=== PATIENT | female | born 1945 | race Caucasian/White ===

== ENCOUNTER 2024-12-25 13:33 | Outpatient (AMB) | payer MEDICARE, SELFPAY ==
--- NOTE | 2024-12-25 14:27 | MHC.OFFWIV ---
Intake Vital Signs 12/25/24 14:33 Weight 137 lb BP 122/80 Blood Pressure Location Rt brachial Position Sitting Pulse 54 Pulse Source Pulse Oximeter Temp 97.6 F Temp Source Oral Pulse Oximetry (%) 99 Oxygen Delivery Method Room Air Intake Visit Reasons: EP cough, sneezing, throat Intake Note: Patient here for cough, humming sound in chest at night, sneezing that has been present for 3 weeks. Patient Tobacco Use Status: Never used Tobacco Allergies atorvastatin [From Lipitor] Adverse Reaction (Mild, Verified 12/25/24 14:34) Unknown citalopram [From Celexa] Adverse Reaction (Mild, Verified 12/25/24 14:34) Unknown ezetimibe [From Vytorin] Adverse Reaction (Mild, Verified 12/25/24 14:34) Unknown hydrochlorothiazide [From Zestoretic] Adverse Reaction (Mild, Verified 12/25/24 14:34) Unknown lisinopril [From Zestoretic] Adverse Reaction (Mild, Verified 12/25/24 14:34) Unknown losartan Adverse Reaction (Mild, Verified 12/25/24 14:34) Unknown nitrofurantoin [From Macrodantin] Adverse Reaction (Mild, Verified 12/25/24 14:34) Unknown simvastatin [From Vytorin] Adverse Reaction (Mild, Verified 12/25/24 14:34) Unknown Sulfa (Sulfonamide Antibiotics) Adverse Reaction (Mild, Verified 12/25/24 14:34) Unknown tegaserod [From Zelnorm] Adverse Reaction (Mild, Verified 12/25/24 14:34) Unknown HPI HPI Comments History of Present Illness Details History - The patient is a 79-year-old female presenting with a persistent cough. - The cough has persisted for three and a half weeks and is described as dry. - The patient experiences sneezing fits, particularly when lying down at night. - She denies fever, shortness of breath, wheezing, ear pain, sinus pain, and gastrointestinal symptoms. - A sensation of abnormal chest noise is also noted. - There is no prior medical history of similar episodes, and she has not sought medical advice before for this issue. Physical Exam General: Cooperative, healthy appearing, comfortable and no acute distress Orientation/consciousness: Patient oriented x3 Limitations: No limitations Head: Normal to inspection Ears: Hearing grossly normal bilaterally, external ears normal and TM's normal bilaterally Nose: Normal external nose present, Normal nares present and No nasal discharge present Face and sinus: Normal facial exam and Yes sinuses nontender Mouth: Normal oral and palatal mucosa present and moist mucous membranes Throat: Yes tonsils normal, Yes uvula midline. Posterior oropharynx erythema Eyes: Appearance normal, both eyes and all related structures Neck: Normal visual inspection Respiratory: Clear to auscultation bilaterally. Normal respiratory effort, able to speak in complete sentences, Actively coughing, no respiratory distress, not tachypneic, no tripod positioning and no use of accessory muscles Cardiovascular: Regular rate and rhythm. Normal S1 and S2 Skin: No rashes or lesions noted Neuro: Patient oriented x3 Extremities: Normal to inspection and Yes no clubbing, cyanosis or edema PFSH Social History Patient Tobacco Use Status: Never used Tobacco Review of Systems Const All systems reviewed & are unremarkable except as noted in HPI and below Physical Exam Vital Signs: Last Vital Signs Temp 97.6 F 12/25/24 14:33 Pulse 54 12/25/24 14:33 BP 122/80 12/25/24 14:33 Pulse Ox 99 12/25/24 14:33 Oxygen Delivery Method Room Air 12/25/24 14:33 Assessment & Plan Assessment & Plan (1) URI, acute: Code(s): J06.9 - Acute upper respiratory infection, unspecified Plan: VSS, pt well appearing, PE unremarkable. Cough for 3 1/2 weeks, possible atypical pneumonia. A Zithromax Z-Franklyn has been prescribed for the patient's persistent cough as a potential bacterial cause is suspected. Warm salt water gargles are recommended for symptom relief, and Tessalon Perles prescribed as a cough suppressant for nighttime use, with an option for daytime if necessary. Ibuprofen is suggested for reducing throat inflammation. The patient will collect prescriptions from the specified pharmacy. Additional supportive measures include hydration, hot tea with honey, and rest. Patient was informed and verbally consented to the use of an ambient scribe for clinic note documentation during this visit Medications: New azithromycin For 250 mg dose pack: take 500 mg today (day 1), then 250 mg for 4 days (days 2-5) PO 6 tabs 0RF benzonatate 200 mg PO TID PRN 14 caps 0RF cough Coding Level of Care Code New Pt Level 3 (69035) Diagnoses URI, acute J06.9
[2024-12-25 14:33] VITALS: BP 122/80; PULSE 54; TEMP 36.4; O2SAT 99
== END 2024-12-25 14:58 | disposition home or self-care (01) ==
PROVIDERS: PCP Internal Medicine; Visit Provider Physician Assistant
DX: J06.9 Acute upper respiratory infection, unspecified (principal)

== ENCOUNTER → 2024-12-25 13:33 | Outpatient (BNVA) | payer MEDICARE, SELFPAY | PROVIDERS: PCP Internal Medicine | DX: J06.9 Acute upper respiratory infection, unspecified (principal) | CPT/HCPCS: 99202 ==

== ENCOUNTER 2025-06-23 09:25 | Outpatient (REF) | payer MEDICARE, SELFPAY ==
--- NOTE | ~2025-06-23 | XR_ITS ---
CLINICAL HISTORY: M79.606 - Pain in leg, unspecified --- Additional Notes or Special Instructions: Right lateral thigh and hip pain Exam: AP, lateral, spot lateral, and bilateral oblique views of the lumbar spine. Comparison: None provided. Findings: Avmr-ay-mjhwfzdx convex right mid lumbar curvature with apex at L3-4. Lateral view demonstrates 9 mm of anterolisthesis of L5 on S1. This is likely related to severe degenerative change of the L5-S1 facet joints. Ugds-lk-xakobfcm multilevel degenerative disc disease and degenerative facet disease throughout the lumbar spine. Degenerative disc disease is most pronounced at L3-4. Moderate to severe facet joint degenerative changes identified throughout. Mild height loss along the superior and inferior endplates of L1, age-indeterminate. Impression: 1. Age-indeterminate L1 compression deformity. Correlation with point tenderness suggested. MRI could further assess the acuity if prior radiographs are not available to confirm stability. 2. Multilevel degenerative disc disease and degenerative facet disease as discussed above. This document has been electronically signed by: Spencer Hauser MD on 06/23/2025 12:29:01
--- NOTE | ~2025-06-23 | XR_ITS ---
CLINICAL HISTORY: M79.606 - Pain in leg, unspecified --- Additional Notes or Special Instructions: Right lateral thigh and hip pain Exam: AP pelvis with AP and frog-leg lateral views of the right hip. Comparison: None provided. Findings: Both hips are held in mild external rotation, more pronounced on the right than on the left. Alignment of the hip joints is otherwise anatomic. No fracture or bony destructive changes identified. Minimal to mild degenerative change of both hip joints. Impression: 1. No acute findings. 2. Minimal to mild degenerative change of both hip joints. These relative minor findings raised the possibility that the patient's right hip pain is radicular in nature. Please refer to the patient's lumbar spine radiograph report from same day for further details. This document has been electronically signed by: Spencer Hauser MD on 06/23/2025 12:30:16
== END 2025-06-23 09:26 | disposition home or self-care (01) ==
LOC: HO.HMGCX 09:25
PROVIDERS: PCP Internal Medicine; Visit Provider Physician Assistant Medical
DX: M16.11 Unilateral primary osteoarthritis, right hip (principal); R26.9 Unspecified abnormalities of gait and mobility; Q76.49 Other congenital malformations of spine, not associated with scoliosis; M79.604 Pain in right leg; M25.551 Pain in right hip
CPT/HCPCS: 72110; 73502; 99212

== ENCOUNTER 2025-06-23 09:25 | Outpatient (AMB) | payer MEDICARE, SELFPAY ==
--- OUTSIDE RECORDS SUMMARY | 2025-06-23 09:26 | XMS_ITS | Clinical Summary ---
Author Organization [address] [place] [address] Phone Care Team Providers Care Line Welder Name Role Phone Pardeep Salamanca MD Primary Care Provider [phone] Surgical History Surgery Date Site/Laterality Comments APPENDECTOMY PROCEDURE: [place] APPENDECTOMY TONSILLECTOMY ADENOIDECTOMY, BILATERAL MYRINGOTOMY AND TUBES PROCEDURE: [place] TONSILLECTOMY & ADENOIDECTOMY <AGE 12 Medical History Medical History Date Comments Diverticulitis DX:Diverticuliti s Hypertension DX:Hypertension GERD (gastroesophageal reflux disease) DX:GERD (gastroesophageal reflux disease) High cholesterol DX:High cholest wiley Social History Tobacco Use Types Packs/Day Years Used Date Smoking Tobacco: Former Smokeless Tobacco: Never Alcohol Use Standard Drinks/Week Comments Yes 0 (1 standard drink = 0.6 oz pur e alcohol) Comments Unknown Sex and Gender Information Value Date Recorded Sex Assigned at Female 02/01/2025 1:01 PM EDT Legal Sex Female 2:45 AM EST Gender Identity Female 02/01/2025 1:01 PM EDT Sexual Orientation Not on file Obstetrics History Plan of Treatment Health Maintenance Due Date Last Done Comments Pneumococcal Vaccine: 50+ Years (1 of 1 - PCV) 1995 Zoster Vaccines (1 of 2) 1995 RSV Immunization Adult Patients (1 - 1-dose 75+ series) 2020 Falls Risk Assessment 10/18/2022 Hepatitis C Screening 10/18/2022 Medicare Annual Wellness Visit 10/18/2022 Osteoporosis Screening (Bone Density Screening) 10/18/2022 Social Influencers of Health Screening 10/18/2022 COVID-19 Vaccine ( season) 2024 02/11/2023, 03/12/2022, 08/13/2021, Additional history exists Depression Screening 11/15/2024 Influenza Vaccine (#1) 2025 Cholesterol Screening (Lipid Panel) 02/01/2030 02/01/2025 DTaP,Tdap,and Td Vaccines (2 - Td or Tdap) 05/01/2034 05/01/2024 HIB Vaccines Aged Out No longer eligi ble based on patient's age to complete this topic HPV Vaccines Aged Out No longer eligi ble based on patient's age to complete this topic Hepatitis A Vaccines Aged Out No long er eligible based on patient's age to complete this topic Hepatitis B Vaccines Aged Out No long er eligible based on patient's age to complete this topic IPV Vaccines Aged Out No longer eligi ble based on patient's age to complete this topic MMR Vaccines Aged Out No longer eligi ble based on patient's age to complete this topic Meningococcal ACWY Vaccine Aged Out N o longer eligible based on patient's age to complete this topic Meningococcal B Vaccine Aged Out No l onger eligible based on patient's age to complete this topic RSV Immunization Patients Under 20 months Aged Out No longer eligible based on patient's age to complete this topic Varicella Vaccines Aged Out No longer eligible based on patient's age to complete this topic Procedures Procedure Name Priority Date/Time Associated Diagnosis Comments LIPID PANEL WITH REFLEX TO DIRECT LDL Routine 02/01/2025 12:32 PM EDT Routine general medical examination at a health care facility Screening for diabetes mellitus Hypothyroidism, unspecified type from Last 3 Months or Most Recently Relevant to Health Maintenance Results * (ABNORMAL) Lipid panel with reflex to direct LDL (02/01/2025 12:32 PM EDT) Cholesterol 188 0 - 200 mg/dL LAB CHEMISTRY METHOD 02/01/2025 4:12 PM EDT [facility] Triglycerides 228(H) 0 - 150 mg/dL LAB CHEMISTRY METHOD 02/01/2025 4:12 PM EDT [facility] HDL 47 >=40 mg/dL LAB CHEMISTRY METHOD 02/01/2025 4:12 PM EDT [facility] LDL Calculated 95 0 - 100 mg/dL LAB CHEMISTRY METHOD 02/01/2025 4:12 PM EDT [facility] VLDL Cholesterol Mariusz 45.6 mg/dL LAB CHEMISTRY METHOD 02/01/2025 4:12 PM EDT [facility] Non HDL Chol. (LDL+VLDL) 141 <145 mg/dL LAB CHEMISTRY METHOD 02/01/2025 4:12 PM EDT [facility] Chol/HDL Ratio 4.0 0.0 - 4.4 LAB CHEMISTRY METHOD 02/01/2025 4:12 PM EDT [facility] Blood Venous blood specimen / Unknown Venipuncture / Unknown 02/01/2025 12:32 PM EDT 02/01/2025 12:40 PM EDT us Farhan WILLIAM LAB BLOOD ORDERABLES Final Res ult [facility] [address] [place] [address], from Last 3 Months or Most Recently Relevant to Health Maintenance Insurance MEDICARE [facility] Care Teams Line Welder Relationship Specialty Start Date End Date Pardeep Salamanca MD [address] [place] [phone] PCP - General Internal Medicine 07/24/21
--- OUTSIDE RECORDS SUMMARY | 2025-06-23 09:26 | XMS_ITS | Clinical Summary ---
Author Organization [facility] Address [address] [place] [address] Care Team Providers Care Miner Name Role Phone Unavailable Primary Care Provider Unavailabl e Social History Tobacco Use Types Packs/Day Years Used Date Smoking Tobacco: Never Assessed Comments Unknown Sex and Gender Information Value Date Recorded Sex Assigned at Not on file Legal Sex Female 3:52 AM EDT Gender Identity Not on file Sexual Orientation Not on file Plan of Treatment Health Maintenance Due Date Last Done Comments Hepatitis C Screening 1945 DTaP/Tdap/Td (1 - Tdap) 1963 Pneumococcal 50+ years (1 of 1 - PCV) 1995 Zoster (Shingrix) (1 of 2) 1995 Bone Density 2010 RSV (1 - 1-dose 75+ series) 2020 COVID-19 Vaccine ( - 2023-2 5 season) 2024 Influenza (#1) 2025 HPV Vaccine (No Doses Required) Completed Hep A Aged Out No longer eligi ble based on patient's age to complete this topic Hep B Aged Out No longer eligi ble based on patient's age to complete this topic Hib Aged Out No longer eligi ble based on patient's age to complete this topic Mammogram/Breast Imaging Discontinued Meningococcal ACWY Aged Out No longer eligible based on patient's age to complete this topic Pap Smear Discontinued Zoster (Zostavax) Discontinued
--- NOTE | 2025-06-23 09:52 | MHC.OFFWIV ---
Intake Vital Signs 06/23/25 09:58 Height 4 ft 9 in Weight 138 lb BMI 29.9 BP 128/70 Blood Pressure Location Rt brachial Position Sitting Respiration 18 Pulse 59 Pulse Source Pulse Oximeter Temp 97.4 F Temp Source Oral Pulse Oximetry (%) 97 Oxygen Delivery Method Room Air Intake Visit Reasons: EP-Rt leg severe pain traveling down leg Intake Note: Pt is here today for a walk in visit. Pt c/o R leg severe pain traveling down her leg. Patient Tobacco Use Status: Never used Tobacco Allergies atorvastatin (From Lipitor) Adverse Reaction (Mild, Verified 06/23/25 09:53) Unknown citalopram (From Celexa) Adverse Reaction (Mild, Verified 06/23/25 09:53) Unknown ezetimibe (From Vytorin) Adverse Reaction (Mild, Verified 06/23/25 09:53) Unknown hydrochlorothiazide (From Zestoretic) Adverse Reaction (Mild, Verified 06/23/25 09:53) Unknown lisinopril (From Zestoretic) Adverse Reaction (Mild, Verified 06/23/25 09:53) Unknown losartan Adverse Reaction (Mild, Verified 06/23/25 09:53) Unknown nitrofurantoin (From Macrodantin) Adverse Reaction (Mild, Verified 06/23/25 09:53) Unknown simvastatin (From Vytorin) Adverse Reaction (Mild, Verified 06/23/25 09:53) Unknown Sulfa (Sulfonamide Antibiotics) Adverse Reaction (Mild, Verified 06/23/25 09:53) Unknown tegaserod (From Zelnorm) Adverse Reaction (Mild, Verified 06/23/25 09:53) Unknown HPI EP-Rt leg severe pain traveling down leg HPI Details Patient is a 79-year-old female who comes to the walk-in clinic complaining of recurrent right leg pain. She reports that she had a similar episode recently, that resolved in about a day, however if flared up again. No known acute injury, or repetitive chronic injury. [facility] Social History Patient Tobacco Use Status: Never used Tobacco Review of Systems Const All systems reviewed & are unremarkable except as noted in HPI and below Physical Exam Vital Signs: Last Vital Signs Temp 97.4 F 06/23/25 09:58 Pulse 59 06/23/25 09:58 Resp 18 08/09/25 09:58 BP 128/70 06/23/25 09:58 Pulse Ox 97 06/23/25 09:58 Oxygen Delivery Method Room Air 06/23/25 09:58 BMI result Body Mass Index 29.9 General: Yes no CVA tenderness Back/Spine/Pelvis Back: no CVA tenderness Thoracic/Lumbar Spine: thoracic and lumbar spine normal to inspection, thoraco-lumbar ROM normal, straight leg raise negative bilaterally, No kyphosis, No paraspinal muscle tenderness and lumbar spinal tenderness (Some generalized discomfort, but no pinpoint tenderness over vertebral proc) Pelvis: no buttock swelling Extrem Right lower extremity: normal to inspection, full ROM, no joint enlargement, hip/thigh (Mild tenderness with palpation to the right lateral hip area) Details: normal ROM; no swelling and foot Details: vascular exam Details: dorsalis pedis pulse present, posterior tibial pulse present and normal capillary refill; no cyanosis and no edema Assessment & Plan Assessment & Plan (1) Leg pain, right: Code(s): M79.604 - Pain in right leg Plan: Patient is a 79-year-old female comes to the walk-in clinic complaining of recurrent right leg pain, which she relates is severe in intensity. She does have a mildly antalgic gait, but no visible trauma, and she is neurovascularly intact distally. She does have some tenderness with palpation to the right hip area, although it only shows mild degeneration on x-ray, consistent with the left side, and she has full range of external rotation. Her right leg strength is equal to the left. X-ray of the lumbosacral spine shows age indeterminate L1 compression deformity, which is not definitely correlated with point tenderness on exam. Patient replies that she does have a history of falls and this could be an old injury. I told her that she should follow up if her symptoms persist for more than a week or 2, into talk with primary care about considering an MRI to assess her back or hip further. She was amenable to this, and we will take NSAIDs and muscle relaxers as prescribed as needed in the meantime. She knows to go to the emergency department with worrisome symptoms Orders: Orders XR hip RT w PEL1V 06/23/25 M79.606 - Pain in leg, unspecified XR lumbar spine 4V min 06/23/25 M79.606 - Pain in leg, unspecified Medications: New cyclobenzaprine 5 mg PO TID 20 tabs 0RF muscle spasm naproxen 500 mg PO BID PRN 28 tabs 0RF pain 14 days Coding Level of Care Code Est Pt Level 4 (10219) Diagnoses Leg pain, right M79.604
[2025-06-23 09:58] VITALS: BP 128/70; PULSE 59; RESP 18; TEMP 36.3; O2SAT 97; BMI 29.9
== END 2025-06-23 12:07 | disposition home or self-care (01) ==
LOC: HO.HMCWIC 09:25
PROVIDERS: PCP Internal Medicine; Visit Provider Physician Assistant Medical
DX: M79.604 Pain in right leg (principal)

== ENCOUNTER → 2025-06-23 11:03 | Outpatient (BNV) | payer MEDICARE, SELFPAY | PROVIDERS: PCP Internal Medicine; Visit Provider Radiology Diagnostic Radiology | DX: M51.369 Other intervertebral disc degeneration, lumbar region without mention of lumbar back pain or lower extremity pain (principal); M16.11 Unilateral primary osteoarthritis, right hip | CPT/HCPCS: 72110; 73502 ==

== ENCOUNTER 2025-09-17 10:28 | Outpatient (AMB) | payer MEDICARE, SELFPAY ==
--- OUTSIDE RECORDS SUMMARY | 2024-06-12 04:30 | XMS_ITS ---
Author Organization [facility], [place] Address [address] [facility] [address] [place] [address] Care Team Providers Care Soil Fertility Extension Specialist Name Role Phone Migration, Provider Unavailable Unavailable REASON FOR VISIT Follow-up Appt Encounters Encounter Location Date Provider Diagnosis [facility], [address] [place] [phone] 06/12/2024 Provider Migration Plan Of Treatment Next Appt Details Provider Name:Ping Puente, 02/11/2026 09:30:00 AM, [address] [place] [address], [address], [place], [address], [phone] Progress Notes * SILVERIO LILLYSCHUYLEROB: [birth year] (80 yo F)Acc No.[id number]:06/12/2024 Progress Notes Patient: TIFFANY MCCORMACK Provider: Nishi Neal :1945 A ge:78 Y S ex:Female Date:06/12/2024 Address:[address] [place], [place] [phone] Subjective: * Chief Complaints: * F ollow-up Appt * Ocular Surgical History: Objective: Vision Examination: * Electronic signature of Prov ider Migration on 09/17/2025 at 12:32 PM EST Sign off status: Pending * Provider: Nishi crabtree Migration Date: 06/12/2024 Generated for Loan gunn/Dottie/eTransmitting on: 11/17/2024 12:32 PM EST
--- OUTSIDE RECORDS SUMMARY | 2024-10-03 05:30 | XMS_ITS ---
Author Organization [facility], [place] Address [address] [facility] [address] [place] [address] Care Team Providers Care Senior Enlisted Advisor Name Role Phone Migration, Provider Unavailable Unavailable REASON FOR VISIT Follow-up Appt Encounters Encounter Location Date Provider Diagnosis [facility], [address] [place] [phone] 10/03/2024 Provider Migration Plan Of Treatment Next Appt Details Provider Name:Ping Puente, 02/11/2026 09:30:00 AM, [address] [place] [address], [address], [place], [address], [phone] Progress Notes * SILVERIO LILLYSCHUYLEROB: [birth year] (80 yo F)Acc No.[id number]:10/03/2024 Progress Notes Patient: TIFFANY MCCORMACK Provider: Nishi Neal :1945 A ge:79 Y S ex:Female Date:10/03/2024 Address:[address] [place], [place] [phone] Subjective: * Chief Complaints: * F ollow-up Appt * Ocular Surgical History: Objective: Vision Examination: * Electronic signature of Prov ider Migration on 09/17/2025 at 12:33 PM EST Sign off status: Pending * Provider: Nishi crabtree Migration Date: 12/03/2023 Generated for Loan gunn/Dottie/eTransmitting on: 11/17/2024 12:33 PM EST
--- OUTSIDE RECORDS SUMMARY | 2025-01-25 05:00 | XMS_ITS ---
Author Organization [facility], [place] Address [address] [facility] [address] [place] [address] Care Team Providers Care Glass Carrier Name Role Phone Migration, Provider Unavailable Unavailable REASON FOR VISIT CPX Encounters Encounter Location Date Provider Diagnosis [facility], [address] [place] [phone] 01/25/2025 Provider Migration Plan Of Treatment Next Appt Details Provider Name:Ping Puente, 02/11/2026 09:30:00 AM, [address] [place] [address], Suite [facility], [place], [address], [phone] Progress Notes * SILVERIO LILLYSCHUYLEROB: [birth year] (80 yo F)Acc No.[id number]:01/25/2025 Progress Notes Patient: TIFFANY MCCORMACK Provider: Nishi Neal :1945 A ge:79 Y S ex:Female Date:01/25/2025 Address:[address] [place], [place] [phone] Subjective: * Chief Complaints: * C PX * Ocular Surgical History: Objective: Vision Examination: * Electronic signature of Prov ider Migration on 09/17/2025 at 12:34 PM EST Sign off status: Pending * Provider: Nishi crabtree Migration Date: 01/25/2025 Generated for Loan gunn/Dottie/Nupursmitting on: 11/17/2024 12:34 PM EST
--- OUTSIDE RECORDS SUMMARY | 2025-02-01 06:30 | XMS_ITS ---
Author Organization [facility], [place] Address [address] [facility] [address] [place] [address] Care Team Providers Care Pressurizer Name Role Phone Farhan William Unavailable [phone] REASON FOR VISIT CPX Encounters Encounter Location Date Provider Diagnosis [facility], [address] [place] [phone] 02/01/2025 Farhan William Plan Of Treatment Next Appt Details Provider Name:Ping Puente, 02/11/2026 09:30:00 AM, [address] [place] [address], Suite [facility], [place], [address], [phone] Progress Notes * SILVERIO LILLYSCHUYLEROB: [birth year] (80 yo F)Acc No.[id number]:02/01/2025 Progress Notes Patient: TIFFANY MCCORMACK Provider: Kezia WILLIAM :1945 A ge:79 Y S ex:Female Date:02/01/2025 Address:[address] [place], [place] [phone] Subjective: * Chief Complaints: * C PX * Ocular Surgical History: Objective: Vision Examination: * Electronic signature of Henok William PA-C on 09/17/2025 at 12:33 PM EST Sign off status: Pending * Provider: Kezia WILLIAM Date: 02/01/2025 Generated for Dustini ng/Faaltheag/eTransmitting on: 1 11/17/2024 12:33 PM EST
--- OUTSIDE RECORDS SUMMARY | 2025-02-01 06:30 | XMS_ITS ---
Author Organization [facility], [place] Address [address] [facility] [address] [place] [address] Care Team Providers Care Silver Wrapper Name Role Phone Migration, Provider Unavailable Unavailable REASON FOR VISIT CPX Encounters Encounter Location Date Provider Diagnosis [facility], [address] [place] [phone] 02/01/2025 Provider Migration Plan Of Treatment Next Appt Details Provider Name:Ping Puente, 02/11/2026 09:30:00 AM, [address] [place] [address], Suite [facility], [place], [address], [phone] Progress Notes * SILVERIO LILLYSCHUYLEROB: [birth year] (80 yo F)Acc No.[id number]:02/01/2025 Progress Notes Patient: TIFFANY MCCORMACK Provider: Nishi Neal :1945 A ge:79 Y S ex:Female Date:02/01/2025 Address:[address] [place], [place] [phone] Subjective: * Chief Complaints: * C PX * Ocular Surgical History: Objective: Vision Examination: * Electronic signature of Prov ider Migration on 09/17/2025 at 12:33 PM EST Sign off status: Pending * Provider: Nishi crabtree Migration Date: 02/01/2025 Generated for Loan gunn/Dottie/Nupursmitting on: 11/17/2024 12:33 PM EST
--- OUTSIDE RECORDS SUMMARY | 2025-07-03 11:45 | XMS_ITS ---
Author Organization [facility] [place] Address [address] [place] [address] Care Team Providers Care Membership Assistant Name Role Phone Ping Puente Unavailable [phone] Allergies Allergen (clinical drug ingredient) Drug/Non Drug Allergy documented on EMR Reaction Allergy Type Onset Date Status citalopram CeleXA Unknown Drug Allergy Active atorvastatin Lipitor Unknown Drug Allergy Acti ve nitrofurantoin Macrodantin Unknown Drug Allergy Active ezetimibe / simvastatin Vytorin Unknown Drug Allergy Active Substance with sulfonamide structure and antibacterial mechanism of action (substance) Sulfa Antibiotics Unknown Drug Allergy Active REASON FOR VISIT meds prednisone Medications Medication SIG (Take, Route, Frequency, Duration) Notes Start Date End Date Status Simvastatin 80 MG Tablet 1 tablet in the evening Orally Once a day; Duration: 90 days 05/08/2025 Active Levothyroxine Sodium 50 MCG Tablet 1 tablet in the morning on an empty stomach Orally Once a day; Duration: 90 days 05/08/2025 Active Atenolol-Chlorthalidone 50-25 MG Tablet 1 tablet Orally Once a day; Duration: 90 days 05/08/2025 Active Irbesartan 75 MG Tablet 2 tablets Orally Once a day; Duration: 90 days 05/08/2025 Active Encounters Encounter Location Date Provider Diagnosis [facility], [place] [address] [place] [address] 07/03/2025 Ping Puente Plan Of Treatment Next Appt Details Provider Name:Ping Puente, 02/11/2026 09:30:00 AM, [address] [place] [address], [address], [place], [address], [phone] Progress Notes * ROLANDO LILLYOB: [birth year] (80 yo F)Acc No.[id number]:07/03/2025 Patient: TIFFANY MCCORMACK Provider: Felix Puente :1945 A ge:79 Y S ex:Female Date:07/03/2025 Address:[address] [place], [place] [phone] Subjective: * Chief Complaints: * M eds prednisone * Medical History: Hypertension Hyperlipidemia cervical DJD Reflux esophagitis Irritable bowel syndrome Diverticulosis Hypothyroidism Osteoporosis * Medications: T akingIrbesartan 75 MG Tablet 2 tablets Orally Once a day Atenolol-Chlorthalidone 50-25 MG Tablet 1 tablet Orally Once a day Levothyroxine Sodium 50 MCG Tablet 1 tablet in the morning on an empty stomach Orally Once a day Simvastatin 80 MG Tablet 1 tablet in the evening Orally Once a day Taking Irbesartan 75 MG Tablet 2 tablets Orally Once a day Taking Atenolol-Chlorthalidone 50-25 MG Tablet 1 tablet Orally Once a day Taking Levothyroxine Sodium 50 MCG Tablet 1 tablet in the morning on an empty stomach Orally Once a day Taking Simvastatin 80 MG Tablet 1 tablet in the evening Orally Once a day * Allergies: C eleXALipitorMacrodantinSulfa AntibioticsVytorin * Electronic signature of Maribell Kwame on 09/17/2025 at 12:33 PM EST Sign off status: Pending * Provider: Felix Puente Date: 0 07/03/2025 Generated for Loan gunn/Dottie/Sarah on: 11/17/2024 12:33 PM EST
--- OUTSIDE RECORDS SUMMARY | 2025-07-10 11:30 | XMS_ITS ---
Author Organization [facility] [place] [place] Address [address] [place] [address] Care Team Providers Care Laser Cutter Name Role Phone AlmarazVincent mccoyna Unavailable [phone] REASON FOR VISIT MEDICATION Medications Medication SIG (Take, Route, Frequency, Duration) Notes Start Date End Date Status Irbesartan 75 MG Tablet 2 tablets Orally Once a day; Duration: 90 days 05/08/2025 Active Atenolol-Chlorthalidone 50-25 MG Tablet 1 tablet Orally Once a day; Duration: 90 days 05/08/2025 Active Levothyroxine Sodium 50 MCG Tablet 1 tablet in the morning on an empty stomach Orally Once a day; Duration: 90 days 05/08/2025 Active Simvastatin 80 MG Tablet 1 tablet in the evening Orally Once a day; Duration: 90 days 05/08/2025 Active Encounters Encounter Location Date Provider Diagnosis [facility], [address] [address] 07/10/2025 Peg Almaraz Plan Of Treatment Next Appt Details Provider Name:Ping Puente, 02/11/2026 09:30:00 AM, [address] [place] [address], Suite [facility], [place], [address], [phone] Progress Notes * ROLANDO LILLYOB: [birth year] (80 yo F)Acc No.[id number]:07/10/2025 Patient: SILVERIO MCCORMACKINE Provider: Cynthia Almaraz :1945 A ge:80 Y S ex:Female Date:07/10/2025 Address:[address] [place] [address] [id number] Subjective: * Chief Complaints: * M EDICATION * Medications: T akingIrbesartan 75 MG Tablet [...] the evening Orally Once a day * Electronic signature of Ozzie Almaraz on 09/17/2025 at 12:33 PM EST Sign off status: Pending * Provider: Cynthia Almaraz Date: 0 07/10/2025 Generated for Loan gunn/Dottie/Sarah on: 1 11/17/2024 12:33 PM EST
--- OUTSIDE RECORDS SUMMARY | 2025-07-11 09:45 | XMS_ITS ---
Author Organization [facility] [place] Address [address] [place] [address] Care Team Providers Care Dyer Helper Name Role Phone Ping Puente Unavailable [phone] Allergies Allergen (clinical drug ingredient) Drug/Non Drug Allergy documented on EMR Reaction Allergy Type Onset Date Status citalopram CeleXA Unknown Drug Allergy Active atorvastatin Lipitor Unknown Drug Allergy Acti ve nitrofurantoin Macrodantin Unknown Drug Allergy Active ezetimibe / simvastatin Vytorin Unknown Drug Allergy Active Substance with sulfonamide structure and antibacterial mechanism of action (substance) Sulfa Antibiotics Unknown Drug Allergy Active REASON FOR VISIT follow up visit, right leg pain and right foot numbness, affecting her walking. Was seen in urgent care in 07/09 for the leg pain and they told her she has a cracked bone Medications Medication SIG (Take, Route, Frequency, Duration) [...] a day; Duration: 90 days 05/08/2025 Active Gabapentin 100 MG Capsule 1 capsule at b edtime Orally twice a day; Duration: 90 days 07/11/2025 Active Social History Section Notes: Smoking- Denies Alchohol-occas Caffeine-2 cups of coffee daily Vital Signs Blood pressure systolic 134 mm Hg 07/11/20 25 Blood pressure diastolic 70 mm Hg 025 Heart Rate 71 /min 07/11/2025 Respiratory Rate 16 /min 07/11/2025 Height 57 in 07/11/2025 Weight 138.2 lbs 07/11/2025 BMI 29.9 kg/m2 07/11/2025 Oximetry 95 % 07/11/2025 Height-cm 144.78 cm 07/11/2025 Weight-kg 62.69 kg 07/11/2025 Encounters Encounter Location Date Provider Diagnosis [facility] [place] [address] [place] [address] 07/11/2025 Ping Puente Neuropathy G62.9 Assessments Encounter Date Diagnosis (ICD Code) Assessment Notes Treatment Notes Treatment Clinical Notes Section Notes 07/11/2025 Neuropathy (ICD-10 - G62.9) Plan Of Treatment Medication Medication Name Sig Start Date Stop Date Notes Gabapentin 100 MG Capsule 1 capsule at b edtime Orally twice a day; Duration: 90 days 07/11/2025 Next Appt Details Provider Name:Ping Puente, 02/11/2026 09:30:00 AM, [address], [address], [place], [address], [phone] History and Physical Notes * HPI (History of Present Illness) Category Sub-Category Detail Notes Category Not es Depression screening PHQ-9 Little inte rest or pleasure in doing things: Not at all Feeling down, depressed, or hopeless: No t at all Trouble falling or staying asleep, or sl eeping too much: Not at all Feeling tired or having little energy: N ot at all Poor appetite or overeating: Not at all Feeling bad about yourself o r that you are a failure, or have let yourself or your family down: Not at all Trouble concentrating on thi ngs, such as reading the newspaper or watching television: Not at all Moving or speaking so slowly that other people could have noticed; or the opposite, being so fidgety or restless that you have been moving around a lot more than usual: Not at all Thoughts that you would be b georgi off or of hurting yourself in some way: Not at all Total Score: 0 General Subjective: - Patient reports a cracked bone diagnosis at urgent care, skeptical of its accuracy - Diagnosed with possible sciatica at [facility], experiencing numb right foot and painful right leg - Pain varies, sometimes radiates up the leg, other times down, recurring - Minimal fall, knee trip, not a full fall, reported - Swelling observed, right leg appears bigger, black and blue - Prednisone provided temporary relief, patient reluctant to continue - Ice helps with swelling - Reports degenerative changes and compression deformity noted in L1 area of back via x-ray Objective: - Right leg and foot numbness observed - No significant swelling, redness, or heat detected in leg - Compression deformity in L1 verified by x-ray - Degenerative changes in back observed Assessment: - Sciatica - Degenerative disease of lumbar spine - Compression deformity at L1 Plan: - Referral to sports medicine, [facility] in [place] - Prescribe gabapentin 100 mg twice a day for neuropathic pain - Continue using ice and consider trying heat for symptom relief - Consider possible steroid injection after specialist evaluation - Physical therapy continuation advised, evaluate efficacy after next session - Schedule periodic evaluation and annual physical. Progress Notes * SILVERIO LOYOLASCHUYLEROB: [birth year] (80 yo F)Acc No.[id number]:07/11/2025 Progress Notes Patient: TIFFANY MCCORMACK Provider: Felix Puente :1945 A ge:80 Y S ex:Female Date:07/11/2025 Address:[address] [place], [place] [phone] Subjective: * Chief Complaints: * F ollow up visitright leg pain and right foot numbness, affecting her walking. Was seen in urgent care in 07/09 for the leg pain and they told her she has a cracked bone * HPI: D epression screening: PHQ-9 L ittle interest or pleasure in doing things N ot at all, F eeling down, depressed, or hopeless N ot at all, T rouble falling or staying asleep, or sleeping too much N ot at all, F eeling tired or having little energy N ot at all, P oor appetite or overeating N ot at all, F eeling bad about yourself or that you are a failure, or have let yourself or your family down N ot at all, T rouble concentrating on things, such as reading the newspaper or watching television N ot at all, M oving or speaking so slowly that other people could have noticed; or the opposite, being so fidgety or restless that you have been moving around a lot more than usual N ot at all, T houghts that you would be better off or of hurting yourself in some way N ot at all, T otal Score 0 . G eneral: Subjective: - Patient reports a cracked bone diagnosis at urgent care, skeptical of its accuracy - Diagnosed with possible sciatica at [facility], experiencing numb right foot and painful right leg - Pain varies, sometimes radiates up the leg, other times down, recurring - Minimal fall, knee trip, not a full fall, reported - Swelling observed, right leg appears bigger, black and blue - Prednisone provided temporary relief, patient reluctant to continue - Ice helps with swelling - Reports degenerative changes and compression deformity noted in L1 area of back via x-ray Objective: - Right leg and foot numbness observed - No significant swelling, redness, or heat detected in leg - Compression deformity in L1 verified by x-ray - Degenerative changes in back observed Assessment: - Sciatica - Degenerative disease of lumbar spine - Compression deformity at L1 Plan: - Referral to sports medicine, [facility] in [place] - Prescribe gabapentin 100 mg twice a day for neuropathic pain - Continue using ice and consider trying heat for symptom relief - Consider possible steroid injection after specialist evaluation - Physical therapy continuation advised, evaluate efficacy after next session - Schedule periodic evaluation and annual physical. * Medical History: Hypertension Hyperlipidemia cervical DJD Reflux esophagitis Irritable bowel syndrome Diverticulosis Hypothyroidism Osteoporosis [facility] Medical History Verified * Surgical History: appendectomy Surgical History verified. * Hospitalization/Major Diagno stic Procedure: right leg pain at [facility] 06/2025 Hospitalization Verified. * Family History: 2 sister(s) . 3 daughter(s) . . F amily History Verified.. 2 sisters Health Care Proxy- Pardeep Loyola-[phone]. * Social History: Social History Verified. S moking- Denies Alchohol-occas Caffeine-2 cups of coffee daily. * Medications: T akingIrbesartan 75 MG Tablet 2 tablets Orally Once a day Atenolol-Chlorthalidone 50-25 MG Tablet 1 tablet Orally Once a day Levothyroxine Sodium 50 MCG Tablet 1 tablet in the morning on an empty stomach Orally Once a day Simvastatin 80 MG Tablet 1 tablet in the evening Orally Once a day Medication List reviewed and reconciled with the patientTaking Irbesartan 75 MG Tablet 2 tablets Orally Once a day Taking Atenolol-Chlorthalidone 50-25 MG Tablet 1 tablet Orally Once a day Taking Levothyroxine Sodium 50 MCG Tablet 1 tablet in the morning on an empty stomach Orally Once a day Taking Simvastatin 80 MG Tablet 1 tablet in the evening Orally Once a day Medication List reviewed and reconciled with the patient * Allergies: C eleXALipitorMacrodantinSulfa AntibioticsVytorinyesAllergies Verified. Objective: * Vitals: B P: 134/70 mm Hg, HR: 71 /min, RR: 16 /min, Oxygen sat %: 95 %, Ht: 57 in, Wt: 138.2 lbs, BMI: 29.9 Index, Wt-k.69 kg, Ht-cm: 144.78 cm, Body Surface Area: 1.59. Assessment: * Assessment: 1. N europathy - G62.9 Plan: * Treatment: * Electronic signature of Maribell her Puente on 09/17/2025 at 12:34 PM EST Sign off status: Pending * Provider: Felix Puente Date: 0 07/11/2025 Generated for Loan gunn/Dottie/Sarah on: 1 11/17/2024 12:34 PM EST
--- OUTSIDE RECORDS SUMMARY | 2025-07-19 08:45 | XMS_ITS ---
Author Organization [facility] [place] Address [address] [place] [address] Care Team Providers Care Pickling Grader Name Role Phone Ping Puente Unavailable [phone] REASON FOR VISIT follow-up Encounters Encounter Location Date Provider Diagnosis [facility], [address] [place] [phone] 07/19/2025 Ping Kwame Plan Of Treatment Next Appt Details Provider Name:Ping Torstenalysha, 02/11/2026 09:30:00 AM, [address], [address] [facility], [place], [address], [phone] Progress Notes * MAXXSILVERIOSCHUYLEROB: [birth year] (80 yo F)Acc No.[id number]:07/19/2025 Progress Notes Patient: TIFFANY MCCORMACK Provider: Felix Puente :1945 A ge:80 Y S ex:Female Date:07/19/2025 Address:[address] [place], [place] [id number] Subjective: * Chief Complaints: * F ollow-up * Electronic signature of Maribell Puente on 09/17/2025 at 12:34 PM EST Sign off status: Pending * Provider: Felix Puente Date: 0 07/19/2025 Generated for Loan gunn/Dottie/eTransmitting on: 11/17/2024 12:34 PM EST
--- NOTE | 2025-09-17 10:38 | MHC.OFFWIV ---
Intake Vital Signs 09/17/25 10:39 Height 4 ft 9 in Weight 132 lb BMI 28.6 BP 136/88 Blood Pressure Location Rt brachial Position Sitting Pulse 60 Pulse Source Pulse Oximeter Temp 97.6 F Temp Source Oral Pulse Oximetry (%) 100 Oxygen Delivery Method Room Air Intake Visit Reasons: EP rash on neck,legs,back Intake Note: Patient presents with c/o rash throughout upper body & legs x4 days. Patient Tobacco Use Status: Never used Tobacco Allergies atorvastatin (From Lipitor) Adverse Reaction (Mild, Verified 09/17/25 10:41) Unknown citalopram (From Celexa) Adverse Reaction (Mild, Verified 09/17/25 10:41) Unknown ezetimibe (From Vytorin) Adverse Reaction (Mild, Verified 09/17/25 10:41) Unknown hydrochlorothiazide (From Zestoretic) Adverse Reaction (Mild, Verified 09/17/25 10:41) Unknown lisinopril (From Zestoretic) Adverse Reaction (Mild, Verified 09/17/25 10:41) Unknown losartan Adverse Reaction (Mild, Verified 09/17/25 10:41) Unknown nitrofurantoin (From Macrodantin) Adverse Reaction (Mild, Verified 09/17/25 10:41) Unknown simvastatin (From Vytorin) Adverse Reaction (Mild, Verified 09/17/25 10:41) Unknown Sulfa (Sulfonamide Antibiotics) Adverse Reaction (Mild, Verified 09/17/25 10:41) Unknown tegaserod (From Zelnorm) Adverse Reaction (Mild, Verified 09/17/25 10:41) Unknown HPI HPI Comments History of Present Illness Details History - The patient is an 80-year-old female presenting with a rash characterized by itching and widespread distribution. - The rash appeared suddenly and is described as itchy, affecting the back, legs, underarms, and other areas. - The patient has been using hydrocortisone cream without significant relief. - There have been no recent changes in lotions, soaps, detergents, or clothing that could account for the rash. - The patient denies recent antibiotic use or changes in diet. - The patient is scheduled for a cortisone injection for her leg on the . - She denies new foods, medications, pets, travel, CP, or SOB. Physical Exam General: Cooperative, healthy appearing, comfortable, no acute distress and well developed Orientation: Patient oriented x3 Limitations: No limitations Mouth: normal, moist oral mucosa Neck: Normal visual inspection and Yes full ROM Respiratory: Normal respiratory effort and able to speak in complete sentences. Clear to auscultation bilaterally. No w/r/r noted. Cardiovascular: RRR, no m/r/g noted. Normal S1 and S2 Skin: Diffuse maculopapular erythematous dry rash noted on the posterior neck, back abd, chest wall, and legs. Patient was informed and verbally consented to the use of an ambient scribe for clinic note documentation during this visit [facility] Social History Patient Tobacco Use Status: Never used Tobacco Review of Systems Const All systems reviewed & are unremarkable except as noted in HPI and below Physical Exam Vital Signs: Last Vital Signs Temp 97.6 F 09/17/25 10:39 Pulse 60 09/17/25 10:39 BP 136/88 09/17/25 10:39 Pulse Ox 100 09/17/25 10:39 Oxygen Delivery Method Room Air 09/17/25 10:39 BMI result Body Mass Index 28.6 Assessment & Plan Assessment & Plan (1) Rash: Code(s): R21 - Rash and other nonspecific skin eruption Plan Most likely urticaria vs contact dermatitis Plan - The patient will be prescribed three medications: two for itching and one steroid to reduce inflammation. - Medications include prednisone, Pepcid, and Cetirizine. - The treatment duration is expected to be about one week to assess improvement and histamine response. - follow up as needed with PCP Medications: New prednisone 40 mg (2 x 20 mg) PO DAILY 10 tabs 0RF 5 days cetirizine 10 mg PO DAILY PRN 30 tabs 0RF allergy symptoms famotidine (Pepcid) 20 mg PO DAILY 30 tabs 0RF Coding Level of Care Code Est Pt Level 3 (13028) Diagnoses Rash R21
[2025-09-17 10:39] VITALS: BP 136/88; PULSE 60; TEMP 36.4; O2SAT 100; BMI 28.6
--- OUTSIDE RECORDS SUMMARY | 2025-09-17 12:34 | XMS_ITS | Patient Health Record ---
Author Organization [facility] [place] Address [address] [place] [address] Care Team Providers Care Dope Firer Name Role Phone Farhan William Unavailable [phone] Migration, Provider Unavailable Unavailable Ping Puente Unavailable [phone] Peg Almaraz Unavailable [phone] Allergies Allergen (clinical drug ingredient) Drug/Non Drug Allergy documented on EMR Reaction Allergy Type Onset Date Status citalopram CeleXA Unknown Drug Allergy Active atorvastatin Lipitor Unknown Drug Allergy Acti ve nitrofurantoin Macrodantin Unknown Drug Allergy Active ezetimibe / simvastatin Vytorin Unknown Drug Allergy Active Substance with sulfonamide structure and antibacterial mechanism of action (substance) Sulfa Antibiotics Unknown Drug Allergy Active Reason For Referral No Information Medications Medication SIG (Take, Route, Frequency, Duration) Notes Start Date End Date Status Gabapentin 100 MG Capsule 1 capsule at b edtime Orally twice a day; Duration: 90 days 07/11/2025 Active Atenolol-Chlorthalidone 50-25 MG Tablet 1 tablet [...] a day; Duration: 90 days 05/08/2025 Active Social History Section Notes: Smoking- Denies Alchohol-occas Caffeine-2 cups of coffee daily Vital Signs Heart Rate 71 /min 07/11/2025 Respiratory Rate 16 /min 07/11/2025 Height-cm 144.78 cm 07/11/2025 Oximetry 95 % 07/11/2025 Blood pressure diastolic 70 mm Hg 07/11/2025 Weight-kg 62.69 kg 07/11/2025 Height 57 in 07/11/2025 Blood pressure systolic 134 mm Hg 07/11/2025 Weight 138.2 lbs 07/11/2025 BMI 29.9 kg/m2 07/11/2025 Encounters Encounter Location Date Provider Diagnosis [facility] [place] [address] [place] [phone] 10/03/2024 Provider Migration [facility] [place] [address] [place] [phone] 01/25/2025 Provider Migration [facility] [place] [address] [place] [phone] 02/01/2025 Farhan William [facility] [place] [address] [place] [phone] 02/01/2025 Provider Migration [facility] [place] [address] [place] [phone] 07/11/2025 Ping Puente Neuropathy G62.9 [facility] [place] [address] [place] [address] 05/08/2025 Farhan William [facility] [place] [address] [place] [phone] 06/08/2025 Ping Kwame [facility] [place] [address] [place] [phone] 07/18/2025 Ping Sarmientoalysha [facility], [address] [place] [phone] 08/06/2025 Pingher Puente Assessments Encounter Date Diagnosis (ICD Code) Assessment Notes Treatment Notes Treatment Clinical Notes Section Notes 07/11/2025 Neuropathy (ICD-10 - G62.9) Plan Of Treatment Next Appt Details Provider Name:Ping Puente, 02/11/2026 09:30:00 AM, [address], [place] [address], [place], [address], [phone] Insurance Providers Payer Name Payer Address Payer Phone Subscriber Number Group Number Insured Name Patient Relationship to Insured Coverage Start Date Coverage End Date A [employer], [facility] [address] [place] [phone] [id number] MAXX, TIFFANY Self - patient is the insured [employer] [address] [place] [address] [id number] SILVERIO LILLYINE Self - patient is the insured Medical (General) History Medical History History ICD Code hypertension hyperlipidemia cervical DJD reflux esophagitis irritable bowel syndrome diverticulosis Hypothyroidism osteoporosis [facility] Surgical History Surgery Date(Month/Year) appendectomy Hospitalization History Reason Date(Month/Year) right leg pain at [facility] 06/2025
--- OUTSIDE RECORDS SUMMARY | 2025-09-17 12:34 | XMS_ITS ---
Author Name [facility] Organization Unknown Encounters Encounter Type Encounter Reason Primary Diagnosis Location Date Ambulatory [facility] 09/12/2024 Care Team Organization Name Specialty Phone Email Start Date End Da te [facility] 03/10/2025 [facility] 12/17/2024 [facility] 06/01/2024 [facility] 09/22/2022
--- OUTSIDE RECORDS SUMMARY | 2025-09-17 12:34 | XMS_ITS | Clinical Summary ---
Author Organization [facility] Address [address] [place] [address] Care Team Providers Care Material Movers Name Role Phone Unavailable Primary Care Provider Unavailabl e Social History Tobacco Use Types Packs/Day Years Used Date Smoking Tobacco: Never Assessed Comments Unknown Sex and Gender Information Value Date Recorded Sex Assigned at Not on file Legal Sex Female 3:52 AM EDT Gender Identity Not on file Sexual Orientation Not on file Plan of Treatment Health Maintenance Due Date Last Done Comments DTaP/Tdap/Td (1 - Tdap) 1963 Pneumococcal 50+ years (1 of 1 - PCV) 1995 Zoster (Shingrix) (1 of 2) 1995 Bone Density 2010 RSV (1 - 1-dose 75+ series) 2020 COVID-19 Vaccine ( - 2024-2 6 season) 2025 Influenza (#1) 2025 HPV Vaccine (No Doses [...]
--- OUTSIDE RECORDS SUMMARY | 2025-09-17 12:34 | XMS_ITS | Clinical Summary ---
Author Organization [address] Address [address] [place] [address] Phone Care Team Providers Care [employer] Floor[employer] Name Role Phone Pardeep Salamanca MD Primary Care Provider [phone] Surgical History Surgery Date Site/Laterality Comments APPENDECTOMY PROCEDURE: LA APPENDECTOMY TONSILLECTOMY ADENOIDECTOMY, BILATERAL MYRINGOTOMY AND TUBES PROCEDURE: LA TONSILLECTOMY & ADENOIDECTOMY <AGE 12 Medical History [...] 75+ series) 2020 Falls Risk Assessment 10/18/2022 Medicare Annual Wellness Visit 10/18/2022 Osteoporosis Screening (Bone Density Screening) 10/18/2022 Social Influencers of Health Screening 10/18/2022 Depression Screening 11/15/2024 COVID-19 Vaccine ( season) 2025 02/11/2023, 03/12/2022, 08/13/2021, Additional history exists Influenza Vaccine (#1) 2025 Cholesterol Screening (Lipid [...] LAB CHEMISTRY METHOD 02/01/2025 4:12 PM EDT [facility] Triglycerides 228(H) 0 - 150 mg/dL LAB CHEMISTRY METHOD 02/01/2025 4:12 PM EDT [facility] HDL 47 >=40 mg/dL LAB CHEMISTRY METHOD 02/01/2025 4:12 PM EDT [facility] LDL Calculated 95 0 - 100 mg/dL LAB CHEMISTRY METHOD 02/01/2025 4:12 PM EDT [facility] VLDL Cholesterol Mariusz 45.6 mg/dL LAB CHEMISTRY METHOD 02/01/2025 4:12 PM EDT [facility] Non HDL Chol. (LDL+VLDL) 141 <145 mg/dL LAB CHEMISTRY METHOD 02/01/2025 4:12 PM EDT [facility] Chol/HDL Ratio 4.0 0.0 - 4.4 LAB CHEMISTRY METHOD 02/01/2025 4:12 PM EDT [facility] Blood Venous blood specimen / Unknown Venipuncture / Unknown 02/01/2025 12:32 PM EDT 02/01/2025 12:40 PM EDT us Farhan WILLIAM LAB BLOOD ORDERABLES Final Res ult [facility] [address] [place] [address], [place] [phone] from Last 3 Months or Most Recently Relevant to Health Maintenance Insurance MEDICARE [facility] Care Teams [employer] Floor[employer] Relationship Specialty Start Date End Date Pardeep Salamanca MD [address] [address] PCP - General Internal Medicine 07/24/21
--- OUTSIDE RECORDS SUMMARY | 2025-09-17 12:35 | XMS_ITS | Data Portability ---
Author Organization [place] - [facility] Address [address] [address] Care Team Providers Care Bung Dropper Name Role Phone ANIYA HUDOSN Primary Care Provider ANIYA HUDSON Referring Provider Assessment Encounter Date Assessment Date Assessment LastModified by Organization Details LastModified Time 09/27/2024 09/27/2024 Recommendations: Follow up with referring provider. rodger Not available 09/27/2024 10:27:48 09/27/2024 09/27/2024 79-year-old female presents for evaluation of ear blockage. Cerumen impaction removed bilaterally. Bilateral TMs are intact with aerated middle ear spaces. Audiometric testing demonstrated normal to moderate SNHL bilaterally. She is a candidate for amplification and medical clearance was provided today. She will follow up yearly for audiometric testing, or sooner with concerns. Patient with history of chronic rhinitis. Anterior rhinoscopy without evidence of purulence, turbinate hypertrophy, or polyps. Recommended trial of Atrovent nasal spray twice daily. If nasal spray is too drying, she may decrease to once daily or increase to 3 times daily if no improvement BID. Follow up if symptoms persist or worsen. [email or web address] Not available 09/27/2024 15:23:25 Plan of Treatment Reminders Order Date Submit Date Provider Last Modified By Organization Details Last Modified Time Details Appointments Hearing Test 2024 10:00A M Hearing Test Not available Not available Not available Establish ed 15 2024 10:30A M COURTNEY WATKINS PA-C Not available Not available Not available Lab None recorded. Referral None recorded. Procedures None recorded. Surgeries None recorded. Imaging None recorded. Medication Orders ipratropi um bromide 21 mcg (0.03 %) nasal spray 2023 024 [id number], [address] [place], [id number], 09/27/2024 10:13:46 Patient TargetsNo targets recorded. Patient InstructionsNo instructions recorded. Reason for Referral None Reported. Results Created Date Observation Date Name Description Value Unit Range Abnormal Flag Note LastModifiedBy Organization Detail LastModifiedTime 09/28/20 audio gram No observ ation record ed. BARCODE Not Available 2023 10:43:31 Result Notes None recorded. Problems Name Problem SNOMED Code Status Onset Date Resolution Date Notes Provider Name and Address Organization Details Recorded Time Sensorine ural hearing loss of bilateral ears 247805353 Active 2020 Sensorine ural hearing loss, bilateral ; Note: Date Diagnosed : 02/07/2021 11:30 AM (H90.3) Not Available [facility] 4 02:37:34 Impacted cerumen of bilateral ears 02050246392 15137 Active 2020 Impacted cerumen, bilateral ; Note: Date Diagnosed : 02/09/2021 9:11 AM (H61.23) Not Available [facility] 4 02:37:34 Ulcerativ e rhinitis 08482617 Active 2020 Nasal mucositis (ulcerati ve); Note: Date Diagnosed : 02/09/2021 9:12 AM (J34.81) Not Available [facility] 4 02:37:36 Impacted cerumen in left ear 06475366127 65725 Active 2022 Impacted cerumen, left ear; Note: Date Diagnosed : 03/08/2023 12:29 PM (H61.22) Not Available [facility] 4 02:37:36 Chronic rhinitis 40722923 Active 2023 COURTNEY WATKINS PA-C [address] [place] [address], [place], [address] , [facility] - [facility] 4 10:13:07 Problem Notes None recorded. Procedures Surgical History Date Name Laterality Status Provider Name and Address Organization Details Recorded Time 4 Comp Audio with Tymps - 99975 & 96455 completed ISAAC BOYD [address] [facility] [address], [place], [address], [facility] - [facility] 09/27/2024 10:35:47 4 Cerumen removal without microscope bilat completed COURTNEY WATKINS PA-C [address] [facility] [address], [place], [address], [facility] - [facility] 09/27/2024 10:13:00 Imaging Results None recorded. Procedure Notes None recorded. Medical Equipment None Reported. Allergies Allergen ID Allergen Name Allergen Category Reaction Reaction Severity Criticality Documentation Date Start Date Code Code System Note Provider Name and Address Organization Details Recorded Time 13698 Lipitor medicatio n other Not available Not available 03/28/2024 96197 5 RxNorm React ion: other react ion, Unkno wn; Not Available [facility] 4 01:04:09 72087 Substance with sulfonami de structure and antibacte rial mechanism of action (substanc e) medicatio n other Not available Not available 03/28/2024 25063 8003 SNOMED React ion: other react ion, Unkno wn; Not Available [facility] 4 01:04:10 28876 Celexa medicatio n other Not available Not available 03/28/2024 13893 8 RxNorm React ion: other react ion, Unkno wn; Not Available [facility] 4 01:04:11 Medications Name Sig Start Date Stop Date Status Note LastModified by Organization Details LastModified Time Miralax 17 gram oral powder packet 2020 active Medication ID: [id number] Bra nd Name: Miralax Se nd Method: E-Prescrib ed Subs Allowed: subs OK Medicat ionGeneric Name: Miralax Not Available Not Available Not Available nabumetone 750 mg tablet 2020 active Medication ID: [id number] Bra nd Name: nabumetone Send Method: E-Prescrib ed Subs Allowed: subs OK Medicat ionGeneric Name: nabumetone Not Available Not Available Not Available azithromyc in 250 mg tablet TAKE 2 TABLETS BY MOUTH FOR 1 DAY THEN TAKE 1 TABLET BY MOUTH DAILY FOR 4 DAYS active Not Available Not Available No t Available atenolol 50 mg-chlorth alidone 25 mg tablet TAKE 1 TABLET ONCE DAILY active Not Available Not Available No t Available simvastati n 80 mg tablet TAKE 1 TABLET EVERY NIGHT active Not Available Not Available No t Available levothyrox ine 50 mcg tablet TAKE 1 TABLET ONCE DAILY active Not Available Not Available No t Available irbesartan 75 mg tablet TAKE 1 TABLET ONCE DAILY active Not Available Not Available No t Available mupirocin 2 % topical ointment Apply 1 a small amount three times a day 2020 active Medication ID: [id number] Dur ation Value: 14 Prescribe d By Name: Kusum Toledo MD Brand Name: mupirocin Send Method: E-Prescrib ed Subs Allowed: subs OK Medicat ionGeneric Name: mupirocin Not Available Not Available Not Available ipratropiu m bromide 21 mcg (0.03 %) nasal spray USE 2 SPRAYS IN EACH NOSTRIL THREE TIMES DAILY active Not Available Not Available No t Available Tums 200 mg (as calcium carbonate 500 mg) chewable tablet 2020 active Medication ID: [id number] Clemencia nd Name: Tums Send Method: E-Prescrib ed Subs Allowed: subs OK Medicat ionGeneric Name: Tums Not Available Not Available Not Available Multivitam in 50 Plus tablet 2020 active Medication ID: [id number] Clemencia nd Name: Multivitam in 50 Plus Send Method: E-Prescrib ed Subs Allowed: subs OK Medicat ionGeneric Name: Multivitam in 50 Plus Not Available Not Available Not Available Fish Oil 2020 active Medication ID: [id number] Clemencia nd Name: Fish Oil Send Method: E-Prescrib ed Subs Allowed: subs OK Medicat ionGeneric Name: Fish Oil Not Available Not Available Not Available peg 3350-elect rolytes 236 gram-22.74 gram-6.74 gram-5.86 gram solution 2020 active Medication ID: [id number] Clemencia nd Name: peg 3350-elect rolytes Se nd Method: E-Prescrib ed Subs Allowed: subs OK Medicat ionGeneric Name: peg 3350-elect rolytes Not Available Not Available Not Available Vitals Date Recorded Body weight Body mass index (BMI) Body height Provider Name and Address Organization Details Last Updated DateTime 09/27/2024 80946.6 g 28.3 kg/m2 144.78 cm Camelia Saldana [place] - [facility] 09/27/2024 09:40:39 Social History None recorded. Functional Status None recorded. Mental Status None recorded. Family History Nothing Reported. Medical History No medical history recorded. Gynecological HistoryNo gynecological history recorded. Obstetrics History GPAL:G 0 P 0 0 0 0 Past Encounters Encounter ID Performer Location Encounter Start Date Encounter Closed Date Diagnosis/Indication Diagnosis SNOMED-CT Code Diagnosis ICD10 Code Diagnosis IMO Codes Diagnosis Note [id number] COURTNEY WATKINS PA-C [facility] [address] [address] 09/27/2024 09:38:23 09/27/2024 11:09:33 Impacted cerumen of bilateral ears 0790131977 032345 H61.23 Chronic rhinitis 8773448 6 J31.0 Sensorineu ral hearing loss of bilateral ears 304174967 H90.3 [id number] Isaac WATTS [facility] [address] [address] 09/27/2024 10:24:45 09/28/2024 14:57:40 Sensorineural hearing loss of bilateral ears 137813203 H90.3 Audiologic al evaluation results:Ri ght ear:Modera te high frequency sensorineu ral hearing loss with excellent word recognitio n.Left ear:Modera te high frequency sensorineu ral hearing loss with excellent word recognitio n. Tympanomet ry:Right Ear:Type ALeft Ear:Type A Health Concerns Section Related Observation LastModified by Organization Detai ls LastModified Time None Recorded Concern Status LastModified by Organization Details LastModified Time None Recorded Advance Directives Directive None Recorded Payers Insurance Date Sequence Insurance Name Policy Number Policy Solis Covered Member ID Solis Member ID Guarantor Name 09/28/2024 1 [place] [employer] Betty Loyola [id number] Betty Loyola 10/09/2024 2 [place] [id number] Betty Loyola [id number] Betty Loyola Notes Date Note Type Note Provider Name and Address Organization Details Recorded Time 09/27/2024 text/html ROS as noted in the HPI 79-year-old female presents for evaluation of ear blockage. History of cerumen impaction and bilateral sensorineural hearing loss. Last seen for this in February 2023. Denies history of otologic surgeries. Denies otalgia, otorrhea, and changes in her hearing. Patient also presents for evaluation of chronic rhinitis. Denies history of allergic rhinitis or chronic sinusitis. Denies nasal congestion. Denies history of glaucoma. RAHUL PHILLIP MD 100 [facility],[address], [address], [facility] 09/27/2024 16:35:29 09/27/2024 text/html Audiological Evaluation HPIReported by PatientHearing LossFor hearing loss perceived, patient reportshearing loss in both ears (no differences noted between ears).Abnormal Auditory PerceptionFor abnormal auditory perceptions noted, patient reportsblocked ear (__).Use of amplification or other hearing devicesFor use of amplification or other hearing devices, patient reportsnone (does not use amplification). ISAAC BOYD 100 [facility],[address], [address], [facility] 09/27/2024 10:40:54 OBGyn Episode No OBEpisode recorded.
== END 2025-09-17 11:35 | disposition home or self-care (01) ==
PROVIDERS: PCP Internal Medicine; Visit Provider Physician Assistant Medical
DX: R21 Rash and other nonspecific skin eruption (principal)

== ENCOUNTER → 2025-09-17 10:28 | Outpatient (BNVA) | payer MEDICARE, SELFPAY | PROVIDERS: PCP Internal Medicine; Visit Provider Physician Assistant Medical | DX: R21 Rash and other nonspecific skin eruption (principal) | CPT/HCPCS: 99212 ==